=== PATIENT | female | born 1985 | race Caucasian/White ===

== ENCOUNTER 2024-02-14 08:06 | Emergency (ER) | payer BC ==
[2024-02-14] MEDS ORDERED: Amoxicillin/Potassium Clav 875 MG TAB ONE (08:25)
[2024-02-14] MEDS ORDERED: predniSONE 20 MG TAB ONE (08:25)
== END 2024-02-14 09:10 | disposition home or self-care (01) ==
LOC: CSHERS 08:06
DX: J02.9 Acute pharyngitis, unspecified (principal)
CPT/HCPCS: 87430; 99283; J7512